=== PATIENT | female | born 1990 | race Caucasian/White ===

== ENCOUNTER 2024-08-11 09:50 | Outpatient (CLI) | payer BC ==
[2024-08-11 10:50] LABS: BHCG - Serum Negative (NEGATIVE); Pregs Control Background? CLEAR/WHITE (CLR/WHITE); Pregs Control Bar Appear? YES (CONTROL BAR)
[2024-08-11 11:11] LABS: Anion Gap 13 mmol/L (10-20); BUN (Urea Nitrogen) 8 mg/dL (7.0-18.7); Calc. Creatinine Clearance 0 mL/min (70-130); Calcium 9.4 mg/dL (7.8-10.44); Carbon Dioxide 21 mmol/L (22-29); Chloride 110 mmol/L (98-107); Estimated GFR 101; Glucose 88 mg/dL (70-105); Potassium 4.4 mmol/L (3.5-5.1); Sodium 140 mmol/L (136-145)
== END 2024-08-11 09:51 | disposition home or self-care (01) ==
LOC: CSHLAB 09:50
PROVIDERS: ATTEND Surgery
DX: Z01.812 Encounter for preprocedural laboratory examination (principal); K80.20 Calculus of gallbladder without cholecystitis without obstruction
CPT/HCPCS: 80048; 84703

== ENCOUNTER 2024-08-13 07:08 | Day surgery (SDC) | payer BC ==
[2024-08-11 10:46] VITALS: BMI 56.2
[2024-08-13] MEDS ORDERED: Heparin 5,000 UNITS/ML VIAL ONE (07:34)
[2024-08-13] MEDS ORDERED: Ondansetron PF 4 MG/2 ML Vial ONE (08:57)
[2024-08-13] MEDS ORDERED: PROPOFOL 20 ML ONE (08:57)
[2024-08-13] MEDS ORDERED: Dexamethasone 4 mg/ml Vial ONE (08:57)
[2024-08-13] MEDS ORDERED: Lidocaine 1% PF 5 ML VIAL ONE (08:57)
[2024-08-13] MEDS ORDERED: Rocuronium Bromide 10 MG/ML (10ML VIAL) ONE (08:57)
[2024-08-13] MEDS ORDERED: Midazolam HCl 2 mg/2 ml Vial ONE (08:57)
[2024-08-13] MEDS ORDERED: Fentanyl 250 MCG/5 ML VIAL ONE (08:57)
[2024-08-13] MEDS ORDERED: SUGAMMADEX SODIUM 200 MG/2 ML VIAL ONE (08:58)
[2024-08-13] MEDS ORDERED: Bupivacaine HCl 0.5%/Epinephrine 1:200,000/PF 30 ml Vial ONE (09:00)
[2024-08-13] MEDS ORDERED: CEFAZOLIN 2 GM VIAL ONE (09:14)
[2024-08-13] MEDS ORDERED: fentaNYL 50 mcg/mL 1 mL Vial ONE (10:44)
[2024-08-13] MEDS ORDERED: Promethazine HCl 25 MG/ML VIAL ONE (10:59)
[2024-08-13] MEDS ORDERED: HYDROcodone/Acetaminophen 5/325 mg Tablet ONE (12:06)
== END 2024-08-13 12:40 | disposition home or self-care (01) ==
LOC: CSHSDC 07:08
PROVIDERS: ATTEND Surgery
PROC: 0FT44ZZ Resection of Gallbladder, Percutaneous Endoscopic Approach (ICD-10-PCS; principal; 2024-08-13)
DX: K80.10 Calculus of gallbladder with chronic cholecystitis without obstruction (principal); K76.0 Fatty (change of) liver, not elsewhere classified; I10 Essential (primary) hypertension; E66.01 Morbid (severe) obesity due to excess calories; Z68.43 Body mass index [BMI] 50.0-59.9, adult; Z79.899 Other long term (current) drug therapy
CPT/HCPCS: 88304; C1889; J1100; J1644; J2250; J2405; J2550; J2704; J3010; S2900